=== PATIENT | female | born 1970 | race Caucasian/White ===

== ENCOUNTER 2022-06-06 22:28 | Inpatient (IN) | payer BC ==
[2022-06-07] MEDS ORDERED: Meropenem 1 GM in Sodium Chloride 0.9% 100 ML IVPB SCH (01:15)
[2022-06-07] MEDS: Sodium Chloride 0.9% 1,000 ML IV SCH ×3 (01:17→22:33)
[2022-06-07] MEDS: Morphine 4 MG/ML VIAL SLOW IVP PRN ×4 (02:26→23:56)
[2022-06-07] MEDS: Ondansetron PF 4 MG/2 ML Vial IVP PRN ×4 (02:27→23:56)
[2022-06-07 03:17] LABS: SARS-CoV-2 NAA Rapid Test Not Detected (NotDetected)
[2022-06-07] MEDS: Famotidine/PF 20 mg/2ml Vial SLOW IVP SCH ×2 (08:55→21:08)
[2022-06-07] MEDS: Meropenem 1 GM in Sodium Chloride 0.9% 100 ML IVPB SCH ×2 (08:55→17:24)
[2022-06-07] MEDS: Acetaminophen 325 MG TAB PO PRN (17:24)
[2022-06-08] MEDS: Meropenem 1 GM in Sodium Chloride 0.9% 100 ML IVPB SCH ×3 (02:20→17:56)
[2022-06-08] MEDS: Sodium Chloride 0.9% 1,000 ML IV SCH ×2 (05:43→17:56)
[2022-06-08 06:36] LABS: #Lymphocytes 0.9 thou/uL (1.20-3.40); #Monocytes 0.7 thou/uL (0.11-0.59); %Basophils 0.1 % (0.0-1.0); %Eosinophils 0.2 % (0.0-10.0); %Lymphocytes 6.4 % (21.0-51.0); %Neutrophils 88.3 % (42.0-75.0); Hemoglobin 10.9 g/dL (12.0-16.0); Mean Corpuscular HGB CONC 32.7 g/dL (32.0-36.0); Mean Corpuscular Hemoglobin 31.8 pg (27.0-31.0); Mean Corpuscular Volume 97.2 fL (78.0-98.0); Mean Platelet Volume 7.3 fL (7.4-10.4); Platelet Count 170 thou/uL (130-400); RBC Distribution Width 11.3 % (11.5-14.5); Red Blood Cell (RBC) Count 3.42 mill/uL (4.20-5.40); White Blood Cell (WBC) Count 13.6 thou/uL (4.8-10.8)
[2022-06-08] MEDS: Famotidine/PF 20 mg/2ml Vial SLOW IVP SCH ×2 (08:19→20:36)
[2022-06-08] MEDS: Ondansetron PF 4 MG/2 ML Vial IVP PRN ×2 (08:20→17:56)
[2022-06-08] MEDS: Acetaminophen 325 MG TAB PO PRN ×3 (08:20→22:16)
[2022-06-08] MEDS: Morphine 4 MG/ML VIAL SLOW IVP PRN (17:56)
[2022-06-08] MEDS ORDERED: Dicyclomine 10 MG CAP PO PRN (19:30)
[2022-06-09] MEDS: Meropenem 1 GM in Sodium Chloride 0.9% 100 ML IVPB SCH ×3 (01:56→17:38)
[2022-06-09] MEDS: Sodium Chloride 0.9% 1,000 ML IV SCH ×3 (05:24→23:07)
[2022-06-09] MEDS: Ondansetron PF 4 MG/2 ML Vial IVP PRN ×2 (05:27→14:09)
[2022-06-09] MEDS: Acetaminophen 325 MG TAB PO PRN ×3 (05:28→22:04)
[2022-06-09] MEDS: Thyroid 30 MG TAB PO SCH (06:30)
[2022-06-09] MEDS ORDERED: Cyclobenzaprine 10 MG TAB PO SCH (09:00)
[2022-06-09] MEDS ORDERED: DOXYCYCLINE MONOHYDRATE 40 MG PO SCH (09:00)
[2022-06-09] MEDS: Estradiol 1 MG TAB PO SCH (09:03)
[2022-06-09] MEDS: Polyethylene Glycol 3350 17 GM Packet PO SCH (09:03)
[2022-06-09] MEDS: Famotidine/PF 20 mg/2ml Vial SLOW IVP SCH ×2 (09:03→22:02)
[2022-06-09] MEDS: [UNRECOGNIZED DRUG - OTHER] PO SCH ×2 (14:51→22:02)
[2022-06-09 16:16] LABS: #Lymphocytes 1.2 thou/uL (1.20-3.40); #Monocytes 0.6 thou/uL (0.11-0.59); #Neutrophils 11.5 thou/uL (1.40-6.50); %Basophils 0.2 % (0.0-1.0); %Eosinophils 0.2 % (0.0-10.0); %Lymphocytes 8.8 % (21.0-51.0); %Monocytes 4.6 % (0.0-10.0); %Neutrophils 86.2 % (42.0-75.0); Hemoglobin 11.4 g/dL (12.0-16.0); Mean Corpuscular HGB CONC 33.2 g/dL (32.0-36.0); Mean Corpuscular Hemoglobin 32.1 pg (27.0-31.0); Mean Corpuscular Volume 96.9 fL (78.0-98.0); Mean Platelet Volume 7.3 fL (7.4-10.4); Platelet Count 202 thou/uL (130-400); RBC Distribution Width 11.2 % (11.5-14.5); Red Blood Cell (RBC) Count 3.56 mill/uL (4.20-5.40); White Blood Cell (WBC) Count 13.4 thou/uL (4.8-10.8)
[2022-06-09] MEDS ORDERED: Cyclobenzaprine 10 MG TAB PO PRN (20:54)
[2022-06-10] MEDS: Meropenem 1 GM in Sodium Chloride 0.9% 100 ML IVPB SCH ×3 (01:36→17:23)
[2022-06-10] MEDS: Thyroid 30 MG TAB PO SCH (06:07)
[2022-06-10] MEDS: Sodium Chloride 0.9% 1,000 ML IV SCH ×2 (07:16→17:23)
[2022-06-10] MEDS: Estradiol 1 MG TAB PO SCH (08:19)
[2022-06-10] MEDS: metroNIDAZOLE 500 MG TAB PO SCH ×2 (08:19→14:42)
[2022-06-10] MEDS: Famotidine/PF 20 mg/2ml Vial SLOW IVP SCH (08:19)
[2022-06-10] MEDS: Polyethylene Glycol 3350 17 GM Packet PO SCH (08:20)
[2022-06-10] MEDS ORDERED: Doxycycline 100 MG CAP PO SCH (09:00)
[2022-06-10] MEDS: Acetaminophen 325 MG TAB PO PRN (09:40)
[2022-06-10 15:32] VITALS: BP 123/78; TEMP 98.3
== END 2022-06-10 18:00 | disposition home or self-care (01) | DRG 392 ==
LOC: SURG A 22:28 → OBSVTOIN 22:28
PROVIDERS: ADMIT Specialist; ATTEND Surgery
DX: K57.20 Diverticulitis of large intestine with perforation and abscess without bleeding (principal); Z20.822 Contact with and (suspected) exposure to COVID-19; J45.909 Unspecified asthma, uncomplicated; K21.9 Gastro-esophageal reflux disease without esophagitis; L40.50 Arthropathic psoriasis, unspecified; E03.9 Hypothyroidism, unspecified; N95.1 Menopausal and female climacteric states; K52.3 Indeterminate colitis; Z90.49 Acquired absence of other specified parts of digestive tract; Z98.890 Other specified postprocedural states; Z79.899 Other long term (current) drug therapy; Z79.51 Long term (current) use of inhaled steroids; Z88.1 Allergy status to other antibiotic agents; Z88.0 Allergy status to penicillin; Z88.2 Allergy status to sulfonamides
CPT/HCPCS: 36415; 85025; J2185; J2270; J2405; J3490; J7050; S0028; U0002

== ENCOUNTER 2025-06-28 14:27 | Outpatient (CLI) | payer BC | END 2025-06-28 14:28 | disposition home or self-care (01) | LOC: SCSBT 14:27 | PROVIDERS: ATTEND Obstetrics & Gynecology | DX: Z78.0 Asymptomatic menopausal state (principal); M85.89 Other specified disorders of bone density and structure, multiple sites | CPT/HCPCS: 77080 ==